=== PATIENT | female | born 1980 | race Caucasian/White ===

== ENCOUNTER → 2016-07-31 | Outpatient (CLI) | payer BC ==
[~2016-07-31] VITALS: Ht 154.9 cm; Wt 104.0 kg
[~2016-07-31] MED LIST: ACET-1651 PO; CALC500T7; D5LR 1,000 ML IV ONE; DimenhyDRINATE 50 MG in LR 1,000 ML IV ONE; FERR1TAB25 PO; LEVO25TA49 PO; LOPERAMIDE 2 MG CAPSULE PO ONE; ONDANSETRON 4mg/2ml INJECTION IV PRN; PREN-92 PO; RANI-45 PO
[2016-07-31 10:57] VITALS: BP 146/82; PULSE 91; RESP 18; TEMP 98.5; O2SAT 100
[2016-07-31 10:58] LABS: BASOPHILS % (AUTO) 0.2 % (0-2); EOSINOPHILS # (AUTO) 0.1 T/MM3 (0-0.5); EOSINOPHILS % (AUTO) 0.8 % (0-4); IMMATURE GRANULOCYTE # (AUTO) 0.09 T/MM3 (0.00-0.03); IMMATURE GRANULOCYTE % (AUTO) 0.8 % (0.0-0.5); LYMPHOCYTES # (AUTO) 1.9 T/MM3 (1-4.8); LYMPHOCYTES % (AUTO) 16.5 % (23-45); MEAN CORPUSCULAR HGB 29.6 UUG (26-34); MEAN CORPUSCULAR HGB CONC(MCHC 32.4 GM/DL (31-37); MEAN CORPUSCULAR VOLUME 91.4 UM3 (80-100); MEAN PLATELET VOLUME 9.6 UM3 (9.4-12.4); MONOCYTES # (AUTO) 0.3 T/MM3 (0-0.8); NEUTROPHILS % (AUTO) 78.7 % (33-66); RED BLOOD COUNT 3.72 M/MM3 (4.00-5.20); WBC - WHITE BLOOD COUNT 11.5 T/MM3 (4.5-11.0)
[2016-07-31 11:22] VITALS: Ht 154.9 cm; Wt 104.0 kg
[2016-07-31 11:35] LABS: BLOOD, URINE NEGATIVE (NEGATIVE); COLOR,URINE YELLOW (YELLOW); LEUKOCYTE ESTERASE ,URINE NEGATIVE (NEGATIVE); NITRITE,URINE NEGATIVE (NEGATIVE)
--- NOTE | 2016-07-31 13:51 | NUR ---
STOOL STOOL SPECIMEN COLLECTED AND TAKEN TO LAB. IMMODIUM 2MG PO GIVEN ORDERED.
== END ==
LOC: INF.THER 10:12
PROVIDERS: ATTEND Obstetrics & Gynecology
DX: O21.1 Hyperemesis gravidarum with metabolic disturbance (principal)
CPT/HCPCS: 81003; 84443; 85025; 87507; J1240; J7120; J7121

== ENCOUNTER 2016-09-18 05:33 | Inpatient (IN) | payer BC ==
[2016-09-18] VITALS (14 sets, daily range): BP systolic 102–138; BP diastolic 63–88; PULSE 93–107; RESP 16–18; TEMP 97–98.4; O2SAT 97–100
[~2016-09-18] VITALS: Ht 154.9 cm; Wt 106.1 kg
[~2016-09-18 05:33] MED LIST changes: -D5LR 1,000 ML IV ONE; -DimenhyDRINATE 50 MG in LR 1,000 ML IV ONE; -FERR1TAB25 PO; -LEVO25TA49 PO; -LOPERAMIDE 2 MG CAPSULE PO ONE; -ONDANSETRON 4mg/2ml INJECTION IV PRN; +P-EP-93 PO; -RANI-45 PO
[2016-09-18] MEDS ORDERED: FAMOTIDINE 20mg IVPB 50 ML IV ONE (05:45)
[2016-09-18] MEDS ORDERED: CITRIC ACID/SODIUM CITRATE 30 ML PO ONE (05:45)
[2016-09-18] MEDS ORDERED: CEFAZOLIN 2 GM in D5W 50ml 50 ML IV ONE (05:45)
[2016-09-18] MEDS ORDERED: LIDOCAINE 1% (10mg/ml) 2ml SDV ID PRN (05:45)
[2016-09-18] MEDS ORDERED: NOZIN NASAL SWAB NS PRN (05:45)
[2016-09-18] MEDS: LR 1,000 ML IV PRN ×2 (06:09→07:05)
[2016-09-18 06:27] LABS: BASOPHILS % (AUTO) 0.2 % (0-2); EOSINOPHILS # (AUTO) 0.2 T/MM3 (0-0.5); EOSINOPHILS % (AUTO) 1.1 % (0-4); HCT - HEMATOCRIT 35.4 % (36-46); HGB - HEMOGLOBIN 11.7 GM/DL (12-16); IMMATURE GRANULOCYTE # (AUTO) 0.09 T/MM3 (0.00-0.03); IMMATURE GRANULOCYTE % (AUTO) 0.6 % (0.0-0.5); LYMPHOCYTES % (AUTO) 21.3 % (23-45); MEAN CORPUSCULAR HGB 30.2 UUG (26-34); MEAN CORPUSCULAR HGB CONC(MCHC 33.1 GM/DL (31-37); MEAN CORPUSCULAR VOLUME 91.5 UM3 (80-100); MEAN PLATELET VOLUME 10.3 UM3 (9.4-12.4); MONOCYTES # (AUTO) 0.7 T/MM3 (0-0.8); NEUTROPHILS #(AUTO)-ABSOLUTE 10.1 T/MM3 (1.8-7.7); NEUTROPHILS % (AUTO) 71.8 % (33-66); RED BLOOD COUNT 3.87 M/MM3 (4.00-5.20); WBC - WHITE BLOOD COUNT 14.1 T/MM3 (4.5-11.0)
--- NOTE | 2016-09-18 06:45 | ANESOB ---
Epidural/ Date/Time DATE: 09/18/16 TIME: 06:43 Preop Diagnosis Procedure: Plan: Spinal Height: 5 ' 1.00 " Weight: kg BMI: kg/m2 P:1 Medications & Allergies Inpatient Medications Current Medications Medications (Trade) Dose Ordered Sig/Jayden Start Time Stop Time Status Last Admin Dose Admin Lactated Ringer's (Lactated Ringers) 1,000 ml @ 150 mls/hr Q6H40M PRN 09/18/16 05:36 09/18/16 06:09 150 MLS/HR Lidocaine HCl (Xylocaine 1%) 0.2 mg PRN PRN 09/18/16 05:45 Multi-Ingredient Antiseptic (Nozin Nasal Swab) 3 each PREOP PRN 09/18/16 05:45 Acetaminophen (Tylenol Extra Strength) 500 Mg Tablet, 500 MG PO PRN, (Reported) Last Taken: on 09/17/16 2200 Calcium Carbonate (Tums) 200 Mg Tab.chew, PRN, ( Reported) Last Taken: on 09/17/16 2300 Loratadine/Pseudoephedrine (Claritin-D 12 Hour Tablet) 1 Each Tab.er.12h, 1 TAB PO DAILY, (Reported) Last Taken: on 09/17/16 1000 Vits W-Ca,Fe,Fa(<1MG) ( Vitamins) 1 Tab Tablet, 1 TAB PO DAILY, (Reported) Last Taken: on 09/17/16 1000 Coded Allergies: aspirin (Verified Allergy, Unknown, 09/18/16) Medical/Surgical History Anesthesia PMH: Reports: *Hypertension (with ), Anesthesia Reactions ( no airway issues, n&v), Asthma, Headaches (migraines), Pneumonia (several years ago), Reflux, Thyroid Disease (hypothyroid), Denies: *Diabetes, *[place], Arthritis, CHF, CVA/Stroke/TIA, Cancer, Clotting Problems, Glaucoma, Hepatitis, Hiatal Hernia, Malignant Hyperthermia, Renal Disease, Seizures, Sleep Apnea Smoking Status: Never smoker Does patient use chewing tobac: No Second Hand Exposure: No Substance Use Type: does not use Alcohol Intake: none Anesthesia Adverse Reactions: FOUND nausea and vomiting Family Hx of Anesthesia Advers: none Hx of Motion Sickness: No Complications During : No Pertinent Findings Laboratory Tests 09/18/16 06:07 EKG Rhythm: Sinus Rhythm Physical Exam Respiratory: Lungs clear Cardiovascular: Regular rate, rhythm Airway Assessment Mallampati Score: II TMD: 3 Fingerbreadths Neck Extension: Good Overall Assessment: May Be Diff Intubation ASA: 2 Discussion Discussed risks/options/alternatives of anesthesia. Patient consents. Nursing pain assessment noted. Present for Discussion: Present: Spouse Attestation Statement Prior to the delivery of any anesthetic medication, I examined the patient, developed the plan, obtained the patient's consent and discussed the risk and benefits of the procedure with the patient/guardian. If the note happens to be signed after anesthesia start time, it is only due to providing efficient care of the patient and documenting at a time when the computer is available. LYNDSAY GRISSOM SHOT BLAST EQUIPMENT OPERATOR September 18, 2016 06:45
[2016-09-18] MEDS ORDERED: OXYTOCIN 30 UNIT in D5LR 500 ML IV SCH (08:13)
[2016-09-18] MEDS ORDERED: HYDROCORTISONE 2.5% CREAM 30 GM RECTALLY PRN (08:15)
[2016-09-18] MEDS ORDERED: CALCIUM CARBONATE 500mg Chewable TAB PO PRN (08:15)
[2016-09-18] MEDS ORDERED: ACETAMINOPHEN 500 MG TABLET PO PRN (08:15)
[2016-09-18] MEDS ORDERED: DiphenhydrAMINE 25 MG CAPSULE PO PRN (08:15)
[2016-09-18] MEDS ORDERED: MILK OF MAGNESIA 30 ML SUSP PO PRN (08:15)
[2016-09-18] MEDS: D5LR 1,000 ML IV SCH ×2 (08:42→14:26)
[2016-09-18] MEDS ORDERED: METOCLOPRAMIDE 10mg/2ml INJECTION IV PRN (08:45)
[2016-09-18] MEDS ORDERED: NALBUPHINE 10mg/ml INJECTION IV PRN (08:45)
[2016-09-18] MEDS ORDERED: DiphenhydrAMINE 50 MG/ML INJECTION IV PRN (08:45)
[2016-09-18] MEDS ORDERED: NALOXONE 0.4mg/ml INJECTION IV PRN (08:45)
[2016-09-18] MEDS ORDERED: ONDANSETRON 4mg/2ml INJECTION IV PRN (08:45)
[2016-09-18] MEDS: SIMETHICONE 80 MG CHEWABLE TABLET PO CHEW SCH ×4 (09:30→22:34)
[2016-09-18] MEDS: IBUPROFEN 800 MG TABLET PO SCH ×2 (10:14→18:46)
[2016-09-18] MEDS: HYDROCODONE/APAP 5 mg/325 mg TABLET PO PRN ×3 (11:03→20:28)
--- NOTE | 2016-09-18 11:25 | OPNOTEF ---
DATE OF OPERATION 09/18/2016 PREOPERATIVE DIAGNOSIS 1. Term , previous x1. 2. Undesired fertility. 3. Chronic hypertension with superimposed preeclampsia (mild, with proteinuria). PROCEDURES Repeat low transverse with tubal ligation. SURGEON Milli Holley MD 3D DESIGNER Daniel Casey, Booth Cashier ANESTHESIA Spinal epidural GLASS CYLINDER FLANGER Leodan Carcamo CRNA EBL 700 mL DESCRIPTION OF PROCEDURE Ms. Wilhelm was brought to the OR and given regional analgesia to good effect. She was then placed on the OR table in the supine position with left lateral displacement. A Gusman catheter was placed to dependent drain. The abdomen was prepped and draped in the usual sterile fashion. A Pfannenstiel skin incision was made through the patient's prior scar. This was carried down to fascia. Fascia was incised transversely. Fascia was then bluntly and sharply dissected free of rectus muscles. Rectus muscles were bluntly divided. The peritoneum was tented up and sharply entered. This was extended vertically. The bladder blade was inserted. The bladder was noted to be well below the area of operation. A low transverse uterine incision was made with a sharp knife. There was copious clear amniotic fluid. Baby was somewhat difficult to deliver as the head kept flexing. The vertex blade was used to elevate the head. Baby was then delivered without any further difficulty. Baby was bulb suctioned on the abdomen. Cord was doubly clamped and cut and the baby was given to Dr. Blake and his team for care. This is a liveborn male with Apgars of 6/9/9, weighing 7 pounds, 14.8 ounces. The placenta was then expressed intact. It had a normal configuration and normal-appearing three-vessel cord. The uterus was exteriorized. We swept the myometrium clear of membranes. The myometrial incision was then reapproximated with a running locking 0 Monocryl. We inspected carefully for hemostasis. This was under good control. We turned our attention to the tubal ligation. The right fallopian tube was visualized to its fimbria. It was grasped just past the midpoint with a [place] clamp. A section of tube was isolated with a simple ligature of 0 chromic. The mesosalpinx was then pierced with a hemostat and two simple ligatures of 2-0 silk were brought through, ligating either side of the isolated section of tube. The tube dissection was then excised and sent to pathology. The stumps were carefully watched and found to be hemostatic. We then repeated the procedure on the left fallopian tube in the exact same fashion, again making sure that hemostasis remained under good control. We reinspected the myometrial incision and then returned the uterus to the abdominal cavity. Gross blood clots were removed and we began our peritoneal closure using a running nonlocking 2-0 Vicryl for this. Fascia was then reapproximated with running nonlocking 0 Vicryl. Skin edges were reapproximated with a subcuticular style 3-0 undyed Vicryl. The wound was dressed with Steri-Strips and a sterile dressing. Counts were correct postoperatively x2. The urine remained clear and free flowing throughout the procedure. Ms. Wilhelm was then transferred to recovery in stable condition. FRANCISCO
[2016-09-18 12:19] LABS: HCT - HEMATOCRIT 27.1 % (36-46); HGB - HEMOGLOBIN 8.8 GM/DL (12-16); MEAN CORPUSCULAR HGB 29.7 UUG (26-34); MEAN CORPUSCULAR HGB CONC(MCHC 32.5 GM/DL (31-37); MEAN CORPUSCULAR VOLUME 91.6 UM3 (80-100); MEAN PLATELET VOLUME 10.1 UM3 (9.4-12.4); RED BLOOD COUNT 2.96 M/MM3 (4.00-5.20); WBC - WHITE BLOOD COUNT 16.4 T/MM3 (4.5-11.0)
[2016-09-18 12:33] LABS: BAND NEUTROPHILS # 0.2 T/MM3; EOSINOPHILS # (MANUAL) 0.2 T/MM3 (0-0.5); NEUTROPHILS #(MANUAL)-ABSOLUTE 14.1 T/MM3 (1.8-7.7); TOTAL CELLS COUNTED 100 %
[2016-09-18 15:50] LABS: HCT - HEMATOCRIT 26.8 % (36-46); HGB - HEMOGLOBIN 8.7 GM/DL (12-16); MEAN CORPUSCULAR HGB 29.8 UUG (26-34); MEAN CORPUSCULAR HGB CONC(MCHC 32.5 GM/DL (31-37); MEAN CORPUSCULAR VOLUME 91.8 UM3 (80-100); MEAN PLATELET VOLUME 9.3 UM3 (9.4-12.4); RED BLOOD COUNT 2.92 M/MM3 (4.00-5.20); WBC - WHITE BLOOD COUNT 16.7 T/MM3 (4.5-11.0)
[2016-09-18] MEDS: DOCUSATE CALCIUM 240 MG CAPSULE PO SCH (16:10)
[2016-09-18] MEDS ORDERED: LR 1,000 ML IV ONE (19:00)
[2016-09-18] MEDS ORDERED: DiphenhydrAMINE 50 MG/ML INJECTION IV ONE (22:00)
[2016-09-18] MEDS ORDERED: FENTANYL 100mcg/2ml INJECTION IV ONE (22:00)
[2016-09-18] MEDS ORDERED: ONDANSETRON 4mg/2ml INJECTION IV ONE (22:00)
[2016-09-18] MEDS ORDERED: MORPHINE SULFATE PF 5mg/10ml VL (DURAMORPH) EPI ONE (22:00)
--- NOTE | 2016-09-18 23:06 | NUR ---
Dr Notification Dr Holley notified that pts abdominal dressing pad is 95% saturated with blood which is visible thru the rubber tape that is over abdominal dressing. Dr instructed this RN to look at incision under dressing but make sure to not touch incision. Steri strips are in place over the incision and completely saturated with blood as is the Telfa pad. Dr asked if area bleeding along incision. Explained to Dr that visible bleeding noted coming from left side of pts incision, a slow trickle of blood noted coming this area. Dr instructed RN to discard old dressing and place new ABD pad over pts incision and place rubber tape over the area with pressure. VS reported to Dr when questioned. RN reported pt output also. Reported pt activity which included pt ambulating without difficulty in hallways with stand by supervision. Will continue to monitor pt and report concerns as needed
[2016-09-19] VITALS (41 sets, daily range): BP systolic 128–199; BP diastolic 67–102; PULSE 94–118; RESP 16–24; TEMP 97.8–98.8; O2SAT 92–100
[2016-09-19] MEDS: HYDROCODONE/APAP 5 mg/325 mg TABLET PO PRN (00:40)
--- NOTE | 2016-09-19 01:17 | NUR ---
Dr Notification Dr Milli Holley notified of status on pt dressing being 1/3 saturated in 2 hour timeframe. output 250 in 4 hours, abdomen appears to be more distended and firm but not hard with palpation, Pt reports Abdomen tender up to breast area. Pt and her mother report feeling that pt abdomen appears larger than when pt was . Order received for H&H. Will call Dr with results.
[2016-09-19 01:35] LABS: HCT - HEMATOCRIT 22.3 % (36-46); HGB - HEMOGLOBIN 7.2 GM/DL (12-16)
--- NOTE | 2016-09-19 01:44 | NUR ---
Dr notification Dr Holley notified of pt H&H result 7.2 down from admission of 11.7. Dr reported that she will come evaluate pt.
[2016-09-19] MEDS ORDERED: IOHEXOL 300 MG/ML 100ml INJECTION ONE (02:30)
[2016-09-19] MEDS ORDERED: SALINE FLUSH 10ml SYRINGE ONE (02:30)
[2016-09-19] MEDS ORDERED: NORMAL SALINE 0 ML ONE (02:30)
[2016-09-19 02:35] LABS: CREATININE 0.6 MG/DL (0.7-1.2)
--- NOTE | 2016-09-19 02:38 | NUR ---
Shift summary Pt VSS, molina cath remains in place with adequate output, eating and drinking well, minimal amount of vaginal bleeding, taking Ibuprofen and [place] for incisional and abdominal discomfort, Abdominal binder on as order, pt abdomen distended, evaluated by Dr Arabella Holley at 0210, new order for lab and CT of abdomen. Pt abdominal dressing was reinforced due to bleeding on the left side of pt incision as instructed by Dr Holley, Pt ambulated on unit with supervision without difficulty. Will continue to monitor pt per POC.
[2016-09-19] MEDS: IBUPROFEN 800 MG TABLET PO SCH ×2 (03:32→18:49)
[2016-09-19 04:32] LABS: BASOPHILS % (AUTO) 0.1 % (0-2); EOSINOPHILS # (AUTO) 0.1 T/MM3 (0-0.5); EOSINOPHILS % (AUTO) 0.4 % (0-4); HCT - HEMATOCRIT 20.4 % (36-46); HGB - HEMOGLOBIN 6.7 GM/DL (12-16); IMMATURE GRANULOCYTE # (AUTO) 0.08 T/MM3 (0.00-0.03); IMMATURE GRANULOCYTE % (AUTO) 0.6 % (0.0-0.5); LYMPHOCYTES # (AUTO) 1.8 T/MM3 (1-4.8); LYMPHOCYTES % (AUTO) 12.1 % (23-45); MEAN CORPUSCULAR HGB CONC(MCHC 32.8 GM/DL (31-37); MEAN CORPUSCULAR VOLUME 91.5 UM3 (80-100); MEAN PLATELET VOLUME 9.9 UM3 (9.4-12.4); MONOCYTES # (AUTO) 0.6 T/MM3 (0-0.8); MONOCYTES % (AUTO) 4.3 % (0-9.0); NEUTROPHILS % (AUTO) 82.5 % (33-66); RED BLOOD COUNT 2.23 M/MM3 (4.00-5.20); WBC - WHITE BLOOD COUNT 14.5 T/MM3 (4.5-11.0)
--- NOTE | 2016-09-19 04:36 | ANESPO ---
Post-Op Note Date 09/19/16 Time: 04:36 Status Pt Participated in Evaluation: Pt participated in person Vital Signs Date Time Temp Pulse Resp B/P Pulse Ox O2 Delivery O2 Flow Rate FiO2 09/19/16 03:23 110 24 144/75 98 Room Air 09/19/16 00:20 98.3 Respiratory Function: Airway patent, Regular respirations Cardiovascular Function: Regular pulse Mental Status: Alert/oriented Pain Level Intensity: 7 Hydration: IV infusing Complications during Recovery None apparent Post-Anesthesia Notes Post op bleeding. Follow-Up Instructions Instructions Per Surgeon ESTEPHANIE COBOS CRNA September 19, 2016 04:36
--- NOTE | 2016-09-19 04:39 | ANESPREOP ---
Anesthesia Record Date and Time DATE: 09/19/16 TIME: 04:37 Pre-Op Diagnosis post op bleeding Proposed Surgical Procedure exploratory laparotomy NPO since: 2300 Allergies: Coded Allergies: aspirin (Verified Allergy, Unknown, 09/18/16) Ht/Wt/BMI Height: 5 ' 1.00 " Weight: 106.100 kg BMI: kg/m2 Vital Signs Date Time Temp Pulse Resp B/P Pulse Ox O2 Delivery O2 Flow Rate FiO2 09/19/16 03:23 110 24 144/75 98 Room Air 09/19/16 00:20 98.3 Medications Inpatient Medications Current Medications Medications (Trade) Dose Ordered Sig/Jayden Start Time Stop Time Status Last Admin Dose Admin Lactated Ringer's (Lactated Ringers) 1,000 ml @ 150 mls/hr Q6H40M PRN 09/18/16 05:36 09/18/16 08:17 DC 09/18/16 07:05 150 MLS/HR Lidocaine HCl (Xylocaine 1%) 0.2 mg PRN PRN 09/18/16 05:45 09/18/16 08:17 DC Multi-Ingredient Antiseptic 3 each 3 each PREOP PRN 09/18/16 05:45 09/18/16 08:17 DC 09/18/16 06:51 1 EACH Oxytocin 30 unit/ Dextrose/Lactated Ringer's 503 ml @ 50 mls/hr Q10H4M 09/18/16 08:13 09/18/16 18:16 DC Dextrose/Lactated Ringer's (D5lr) 1,000 ml @ 100 mls/hr Q10H 09/18/16 08:13 09/18/16 14:26 100 MLS/HR Ibuprofen (Motrin) 800 mg Q8HMC 09/18/16 16:00 09/19/16 03:32 800 MG Acetaminophen/ Hydrocodone Bitart ([place] 5/325) Do not exceed 10 tabs in... Q4H PRN 09/18/16 08:15 09/19/16 00:40 2 TAB Docusate Calcium (SURFAK 240 mg) 240 mg DAILY 09/18/16 09:00 09/18/16 16:10 240 MG Simethicone (MYLICON 80 mg) 80 mg PCHS 09/18/16 09:30 09/18/16 22:34 80 MG Acetaminophen (Tylenol Extra Strength) 1-2 TABS = 500-1,000 MG Q4H PRN 09/18/16 08:15 Diphenhydramine HCl (Benadryl) 1-2 TABS = 25-50 MG Q6H PRN 09/18/16 08:15 Magnesium Hydroxide (Mom) 30 ml HS PRN 09/18/16 08:15 Hydrocortisone (Anusol-Hc) 1 applic PRN PRN 09/18/16 08:15 Calcium Carbonate (TUMS Regular Strength) 1-2 TABS = 500-1,000 MG Q2H PRN 09/18/16 08:15 Metoclopramide HCl (REGLAN Inj) 10 mg Q6H PRN 09/18/16 08:45 09/19/16 08:44 Ondansetron HCl (Zofran) 4 mg Q4H PRN 09/18/16 08:45 09/19/16 08:44 Diphenhydramine HCl (Benadryl) 25-50 MG = 0.5-1 ML Q3H PRN 09/18/16 08:45 09/19/16 08:44 09/18/16 11:05 25 MG Nalbuphine HCl (Nubain) 5-10 MG = 0.5-1 ML Q4H PRN 09/18/16 08:45 09/19/16 08:44 Naloxone HCl (Narcan) 0.1 mg Q2M PRN 09/18/16 08:45 09/19/16 08:44 Acetaminophen (Tylenol Extra Strength) 500 Mg Tablet, 500 MG PO PRN, (Reported) Last Taken: on 09/17/16 2200 Calcium Carbonate (Tums) 200 Mg Tab.chew, PRN, ( Reported) Last Taken: on 09/17/16 2300 Loratadine/Pseudoephedrine (Claritin-D 12 Hour Tablet) 1 Each Tab.er.12h, 1 TAB PO DAILY, (Reported) Last Taken: on 09/17/16 1000 Vits W-Ca,Fe,Fa(<1MG) ( Vitamins) 1 Tab Tablet, 1 TAB PO DAILY, (Reported) Last Taken: on 09/17/16 1000 Currently on Beta Christina: No Medical/Surgical History Anesthesia PMH: Reports: *Hypertension (with ), Asthma, Headaches ( migraines), Pneumonia (several years ago), Reflux, Thyroid Disease (hypothyroid) , Denies: *Diabetes, *[place], Anesthesia Reactions, Arthritis, CHF, CVA/Stroke/TIA, Cancer, Clotting Problems, Glaucoma, Hepatitis, Hiatal Hernia, Malignant Hyperthermia, Renal Disease, Seizures, Sleep Apnea Smoking Status: Never smoker Use Chewing Tobacco?: No Second Hand Exposure: No Substance Use Type: does not use Past Surgical History Orthopedic Surgeries: No Abdominal Surgeries: Yes - gallbladder removed 2009 Genitourinary Surgeries: Yes - cystoscopy,urethra stretching Cardiac Surgeries: Endocrine Surgeries: Reproductive Surgeries: Yes - Neurological Surgeries: Ear Surgeries: Nose Surgeries: Throat Surgeries: Other Surgeries: Yes - csection Anesthesia Adverse Reactions: FOUND nausea and vomiting Family Hx of Anesthesia Advers: none Hx of Motion Sickness: No Pertinent Findings Laboratory Tests 09/19/16 02:21 09/19/16 04:27 Physical Exam Respiratory: Lungs clear Cardiovascular: FOUND Regular rate, rhythm, FOUND No murmur Airway Assessment Mallampati Score: II TMD: 3 Fingerbreadths Neck Extension: Good Overall Assessment: No Airway Concerns, May Be Diff Intubation ASA: 3 Plan Anesthesia Plan: GETA (RSI CCP) Discussion Discussed risks/options/alternatives of anesthesia and questions answered. Patient consents. Nursing pain assessment noted. Present: Spouse Attestation Statement Prior to the delivery of any anesthetic medication, I examined the patient, developed the plan, obtained the patient's consent and discussed the risk and benefits of the procedure with the patient/guardian. ESTEPHANIE COBOS CRNA September 19, 2016 04:39
[2016-09-19] MEDS ORDERED: METOCLOPRAMIDE 10mg/2ml INJECTION IV ONE (04:45)
[2016-09-19] MEDS ORDERED: FAMOTIDINE 20mg in NS 50ml IV ONE (04:45)
[2016-09-19] MEDS ORDERED: FAMOTIDINE 20mg IVPB 50 ML IV ONE (04:45)
[2016-09-19] MEDS ORDERED: CEFAZOLIN 2 GM in D5W 50ml 50 ML IV ONE (04:45)
[2016-09-19] MEDS ORDERED: CITRIC ACID/SODIUM CITRATE 30 ML PO ONE ×2 (04:45)
[2016-09-19] MEDS ORDERED: PROPOFOL 200mg 20 ML IV ONE (04:48)
[2016-09-19] MEDS ORDERED: KETAMINE 500mg/10ml INJECTION ONE (04:49)
[2016-09-19] MEDS ORDERED: ROCURONIUM 50mg/5ml INJECTION IV ONE (04:49)
[2016-09-19] MEDS ORDERED: FENTANYL 250mcg/5ml INJECTION ONE (04:49)
--- NOTE | 2016-09-19 05:10 | NUR ---
PATIENT TAKEN TO OR PT WAS ESCORTED OFF UNIT BY MOOK COYLE AND TAKEN TO OR.
[2016-09-19] MEDS ORDERED: MIDAZOLAM 2mg/2ml INJECTION ONE (05:16)
[2016-09-19] MEDS ORDERED: LIDOCAINE 2% (20mg/ml) 5ml PF SDV ONE (05:21)
[2016-09-19] MEDS ORDERED: DEXAMETHASONE 4mg/ml - 1ml INJECTION ONE (05:28)
[2016-09-19] MEDS ORDERED: SUGAMMADEX 200 MG/2 ML INJECTION IV ONE (06:31)
[2016-09-19] MEDS ORDERED: D5LR 1,000 ML IV SCH (06:40)
--- NOTE | 2016-09-19 06:40 | GYNOPNOTE1 ---
METALIZING MACHINE OPERATOR AUTOMATIC Postoperative Note Date of Operation: 09/19/16 Preoperative Dx Comments PreOp Dx: post-op bleeding (s/p with PPTL) Postoperative Diagnosis: Same as Preoperative Procedure: exploratory laparotomy, ligation of myometrial incision Surgeon: Milli Luna MD Chip Mixing Machine Operator Surgeon: Daniel Casey, Surg. Assist Anesthesia Provider: Feliz Voss CRNA Anesthesia Type: general Comments EBL: 3000cc MILLI LUNA MD September 19, 2016 06:40
[2016-09-19] MEDS ORDERED: HYDROCORTISONE 2.5% CREAM 30 GM RECTALLY PRN (06:45)
[2016-09-19] MEDS ORDERED: DiphenhydrAMINE 25 MG CAPSULE PO PRN (06:45)
[2016-09-19] MEDS ORDERED: HYDROMORPHONE PCA 30 MG/30 ML VIAL IV PRN (06:45)
[2016-09-19] MEDS ORDERED: CALCIUM CARBONATE 500mg Chewable TAB PO PRN (06:45)
[2016-09-19] MEDS ORDERED: MILK OF MAGNESIA 30 ML SUSP PO PRN (06:45)
[2016-09-19] MEDS ORDERED: ACETAMINOPHEN 500 MG TABLET PO PRN (06:45)
[2016-09-19] MEDS ORDERED: KETOROLAC 30mg/ml INJECTION IV ONE (07:00)
[2016-09-19] MEDS ORDERED: ONDANSETRON 4mg/2ml INJECTION IV PRN (07:00)
[2016-09-19] MEDS ORDERED: HYDROMORPHONE 2mg/ml INJECTION IV PRN (07:00)
--- NOTE | 2016-09-19 07:02 | PNF ---
DATE 09/19/2016 Ms. Wilhelm has had decreased urine output through the late afternoon and evening. This resolved with IV fluid bolus. However, she has also had abdominal distention. The morning of 09/18/2016, about three hours after her , she developed faintness and some bleeding from her incision. The incision was inspected by me at the time and was reinforced and I did not see any bleeding after that. Her abdomen at that time was soft. The lightheadedness resolved spontaneously. Vital signs showed no tachycardia at the time. Blood pressure did drop to 90s/ 50s briefly but resolved spontaneously. Later the patient was able to walk and eat without incident. This evening she has developed abdominal distention. Her hemoglobin through the course of the day went from 11.7 preop to 8.8 postop and then at 1:30 this morning was 7.2. On exam her abdomen is distended. I am not able to appreciate any bowel sounds. She reports diffuse abdominal tenderness, particularly in the upper quadrants. Her most recent blood pressure is 130/67. Pulse was 94. The patient now has improved urine output. The recheck of her hemoglobin was precipitated by increased bleeding from her incision. This has been reinforced by the nurse and we're not seeing bleeding at this point. I have, however, ordered a CT scan of the abdomen. I suspect she may have postoperative bleeding. went without incident, but I believe that something occurred this morning that may have started some new bleeding. We want to make sure that it is not ongoing. I have discussed this with Ms. Wilhelm who voices understanding and a CAT scan is being arranged at this time. FRANCISCO
[2016-09-19] MEDS ORDERED: LABETALOL 20mg/4ml INJECTION IV ONE (07:20)
[2016-09-19] MEDS: LABETALOL 100mg/20ml INJECTION IV PRN ×3 (07:30→07:50)
[2016-09-19] MEDS ORDERED: LABETALOL 100mg/20ml INJECTION IV ONE (07:30)
--- NOTE | 2016-09-19 07:34 | ANESPO ---
Post-Op Note Date 09/19/16 Time: 07:32 Status Pt Participated in Evaluation: Pt participated in person Vital Signs Date Time Temp Pulse Resp B/P Pulse Ox O2 Delivery O2 Flow Rate FiO2 09/19/16 07:02 20 09/19/16 03:23 110 144/75 98 Room Air 09/19/16 00:20 98.3 Respiratory Function: Airway patent, Regular respirations Cardiovascular Function: Regular pulse Mental Status: Alert/oriented Pain Level Intensity: 0 Hydration: IV infusing Complications during Recovery None apparent Follow-Up Instructions Instructions Per Surgeon ROSARIO ROGERS CRNA September 19, 2016 07:34
--- NOTE | 2016-09-19 08:02 | DI ---
EXAM: CT abdomen pelvis without contrast HISTORY: ITS.REASON: post op bleeding abdominal tenderness and bloating status post and tubal ligation with bleeding from incision site. Hemoglobin has dropped. COMPARISON: No prior studies are available for comparison TECHNIQUE: Multiple contiguous axial images were obtained of the abdomen and pelvis without contrast. Coronal and sagittal reformations were utilized. Automated Exposure Control and Iterative Reconstruction dose reducing techniques were utilized. PROCEDURE: Axial images were obtained throughout the entire abdomen and pelvis without contrast administration. FINDINGS: CT ABDOMEN LUNG BASES: There is bilateral dependent atelectasis demonstrated. LIVER: Unremarkable. SPLEEN: Unremarkable. GALLBLADDER: The gallbladder surgically absent. PANCREAS: Unremarkable. ADRENAL GLANDS: Unremarkable. KIDNEYS: Unremarkable. AORTA: Unremarkable. LYMPH NODES: Unremarkable. STOMACH BOWEL LOOPS: Unremarkable. The appendix is not visualized. PERITONEAL CAVITY: There is moderate to large amount of mixed hypo and hyperdense fluid throughout the abdomen and pelvis. The majority of the hyperdense fluid likely represents hemorrhage and is predominately located in the upper pelvis extending to the paracolic gutters. Small amount of free air is demonstrated within the peritoneal cavity and subcutaneous fat ventrally. CT PELVIS URINARY BLADDER: Gusman catheter is in place within decompressed bladder. UTERUS/OVARIES: The uterus is heterogeneous and enlarged compatible with recent section. OSSEOUS STRUCTURES: Bilateral spondylolysis at the L4 level with grade 1 anterolisthesis of L4 on L5. IMPRESSION: 1. Large mixed free fluid within the abdominal pelvic peritoneal cavity most compatible hemoperitoneum with the greatest amount of fluid concentrated in the upper pelvis and right paracolic gutter. 2. The uterus is enlarged and heterogeneous compatible with recent section. 3. Small pockets of gas within the peritoneal cavity and ventral abdominal subcutaneous wall fat. .
--- NOTE | 2016-09-19 08:43 | NUR ---
BACK FROM OR PT WAS ESCORTED BACK TO [facility] UNIT ON R BY MIRIAN DELVALLE. THIGH HIGH SCD'S AND 1L OXYGEN VIA NC.
[2016-09-19 08:50] LABS: HCT - HEMATOCRIT 25.4 % (36-46); HGB - HEMOGLOBIN 8.4 GM/DL (12-16); MEAN CORPUSCULAR HGB 30.1 UUG (26-34); MEAN CORPUSCULAR HGB CONC(MCHC 33.1 GM/DL (31-37); MEAN PLATELET VOLUME 9.8 UM3 (9.4-12.4); RED BLOOD COUNT 2.79 M/MM3 (4.00-5.20); WBC - WHITE BLOOD COUNT 16.3 T/MM3 (4.5-11.0)
--- NOTE | 2016-09-19 08:55 | PNF ---
DATE 09/19/[address] shows large amounts of fluid in her at the abdomen per the on-call radiologist's verbal report. Because of the apparent bleeding intraabdominally postoperatively, I have recommended we take her back to the operating room for exploratory laparotomy. We have discussed this, the possible sites for bleeding and the potential for need for a blood transfusion. We have reviewed the risks both of the surgery and blood transfusion. She has asked appropriate questions and agrees that this is next best course. The operating crew has been called and we will move forward with that. FRANCISCO
[2016-09-19] MEDS: LR 1,000 ML IV PRN (09:00)
[2016-09-19] MEDS: DOCUSATE CALCIUM 240 MG CAPSULE PO SCH (10:00)
[2016-09-19] MEDS: SIMETHICONE 80 MG CHEWABLE TABLET PO CHEW SCH ×3 (10:00→21:54)
--- NOTE | 2016-09-19 12:17 | OPNOTEF ---
DATE 09/19/2016 PREOPERATIVE DIAGNOSIS Postoperative bleeding (status post section with tubal ligation). POSTOPERATIVE DIAGNOSIS Postoperative bleeding (status post section with tubal ligation). PROCEDURES Exploratory laparotomy with ligation of myometrial bleeding. SURGEON Milli Holley MD WOOD INSPECTOR Daniel Casey, Research Food Technologist ANESTHESIA General endotracheal CUSTOMER DEVELOPMENT REPRESENTATIVE Feliz Cummins CRNA EBL 3000 mL DESCRIPTION OF PROCEDURE Ms. Wilhelm was brought to the OR and placed on the OR table in the comfortable supine position. She was given general anesthesia and intubated without difficulty. The abdomen was prepped and draped in the usual sterile fashion. A Gusman catheter had previously been placed to dependent drain. We opened the patient's prior incision by snipping the sutures all through the skin layer, fascial layer and peritoneal layer. We were was immediately greeted by copious amounts of dark red clot. We removed these manually by and large, then attempted to use the Alvares-O'Jamal retractor. This was not very helpful given the size of the uterus, so we decided to forego that. We simply used Leslie retractors and packed the bowel away. We then started to inspect the uterus. The right fallopian tube was hemostatic but had quite a bit of clot around it. The previous tubal ligation site was therefore clamped with a right angle and a free tie of 2-0 chromic placed around to further secure the previous tubal ligation. The left fallopian tube ligation site was hemostatic with no clot around it. The myometrial incision had a small area of bleeding on the left inferior serosal edge. This was not copious but was small and steady. It did not immediately respond to electrocautery. We then took an 0 Monocryl and secured the area by oversewing in a running locking fashion. We observed very carefully for hemostasis. This seemed to have it under good control. While the bleeding was not heavy at any point, it would explain how hours of that could lead to the amount of blood in the abdomen. We again reinspected all of our sites and the entire extent again of the myometrial incision and felt that the bleeding was under control. We then further removed blood from the abdominal cavity and irrigated copiously with sterile normal saline several times. Again we reinspected all sites. They remained hemostatic. We removed our pack and retractors and began our closure. Peritoneum was reapproximated with a running nonlocking 2-0 Vicryl. Fascia was reapproximated with a running nonlocking 0 Vicryl. Skin edges were then reapproximated with a subcuticular style 3-0 undyed Vicryl. The wound was dressed with a wound VAC dressing. Counts were correct postoperatively x2. The urine remained clear and free flowing throughout the procedure. During the course of the procedure, the patient received one unit of packed red blood cells transfusion. We will be following throughout the morning to see if she needs further transfusion. Ms. Wilhelm was then brought out from under anesthesia, extubated and transferred to recovery in stable condition. FRANCISCO
--- NOTE | 2016-09-19 14:58 | NUR ---
SHIFT SUMMARY VSS. PT RECEIVED 1 UNIT OF PACKED BLOOD IN THE OR, WOUND VAC IN PLACE. PAIN RELIEVED WITH DILAUDID PRODUCTION CONTROL TECHNOLOGIST. THIGH HIGH SCD'S ON, ABDOMINAL BINDER. IV IN LEFT WRIST LR AT 150MLS/HR. PERFORMED ALL CARES FOR BABY. BREAST FEEDING WELL X2.
--- NOTE | 2016-09-19 17:15 | NUR ---
ASSESSMENT: Pt consumed half of her general diet tray. at bedside. VSS, pt states she's having lots of gas pain but unable to have bowel movement. Pt rates gas pain 9/10. Bowel sounds audible, abdm distended but soft. Fundus firm at umbilicus, scant lochia noted. Abdm binder in place and wound vac applying suction at incision. RN discusses increasing ambulation and provides PO Mylicon to facilitate gas relief. IV infusing LR at 25ml/hr and supports Dilaudid SOCK LINING STITCHER. Urinary cath to dependent drain, adequate urine output. Generalized edema noted with +3 edema bilaterally in lower extremities and feet. Thigh-high SCD's pumping bilaterally. Pt has a dry cough, uses pillow to splint abdm. RN assist pt to BRP, no complication with ambulation. RN provides pericare and changes naveen pad. RN accompanies pt while ambulating in hallway on unit, no complications. Pt states she's tired and returns to bed. Water pitcher refilled and call light within pt's reach.
[2016-09-19 18:29] LABS: HCT - HEMATOCRIT 24.1 % (36-46); HGB - HEMOGLOBIN 7.9 GM/DL (12-16); MEAN CORPUSCULAR HGB 29.9 UUG (26-34); MEAN CORPUSCULAR HGB CONC(MCHC 32.8 GM/DL (31-37); MEAN CORPUSCULAR VOLUME 91.3 UM3 (80-100); MEAN PLATELET VOLUME 9.4 UM3 (9.4-12.4); RED BLOOD COUNT 2.64 M/MM3 (4.00-5.20); WBC - WHITE BLOOD COUNT 16.5 T/MM3 (4.5-11.0)
--- NOTE | 2016-09-19 19:47 | NUR ---
BLOATED ABDM: RN informs Dr Rosen on pt's distended abdm. RN explains how pt's abdm is bloated but soft, bowel sounds audible and pt stating she's having gas pain. Pt has generalized edema with +3 edema bilaterally in lower extremities. RN states pt's HR 117bpm and reviews repeat H&H with Dr Rosen. Dr Rosen orders to continue to monitor at this time.
--- NOTE | 2016-09-19 21:50 | NUR ---
VS AND BATH: VSS. Pt states she is still having gas pains in her abdm, rating pain 7/10. PT requesting to have a bath. RN assist pt to BRP, no complications. Urinary molina emptied, 225ml yellow urine collected. RN assist pt with sponge bath, scant lochia noted. While bathing, notable dark red drainage noted in wound vac tubing. Upon assessment of incision, wound vac packing saturated with dark red drainage with vacuum seal intact and drainage collected in cassette. Pt tolerates bath and remains standing in room while RN changes bed linens. RN assist pt back into bed. Meri workforce advisor in room to assess wound vac drainage and assist with application of abdm binder. Pt's fundus firm at umbilicus, abdm distended but softer than prior assessment at 1840. Dark drainage continues to collect in wound vac cassette. Pt denies other needs at this time, Pt's mother in room. Call light within pt's reach.
[2016-09-19] MEDS ORDERED: LR 1,000 ML IV SCH (22:00)
[2016-09-20] VITALS (9 sets, daily range): BP systolic 132–153; BP diastolic 77–96; PULSE 101–109; RESP 16–20; TEMP 97.9–98.5; O2SAT 95–99
--- NOTE | 2016-09-20 00:20 | NUR ---
AMBULATION: Pt having gas pain and states she can feel bubbles moving in her abdm. RN accompanies pt while pt ambulates in hallway, no complications. Pt returns to room and sits on toilet to facilitate flatulence. RN discusses and provides MOM. Pt states she passes a little gas and returns to bed. Call light within pt's reach.
--- NOTE | 2016-09-20 01:30 | NUR ---
PREVENA 125: Pt's wound vac full, 45ml dark drainage collected. Linn Mars RNinformation assurance officer changes Prevena 125 system (wound vac). Negative pressure applied and suction in place.
--- NOTE | 2016-09-20 02:08 | NUR ---
DR ROSEN NOTIFIED: RN calls and updates Dr Rosen on pt's 100ml urine out put for the past 4.[address] Rosen that pt's wound vac has been collecting dark red drainage since 2209 this evening when pt was up to BR and receiving a sponge bath. At 0130 pt's wound vac canister was full (45ml) of dark drainage and changed with new Prevena 125 system. Pt's HR currently 106bpm. Pt's IV infusing at 25ml/hr. Dr Rosen orders to monitor output for the next 4 hours.
--- NOTE | 2016-09-20 02:59 | NUR ---
Chart Check 24 hour chart check completed
[2016-09-20] MEDS: CEFAZOLIN 2 G in NORMAL SALINE 100 ML IV SCH ×3 (04:14→19:30)
[2016-09-20] MEDS: IBUPROFEN 800 MG TABLET PO SCH ×4 (04:14→19:29)
[2016-09-20] MEDS ORDERED: HYDROCODONE/APAP 5 mg/325 mg TABLET PO PRN (08:00)
[2016-09-20] MEDS ORDERED: HYDROMORPHONE PCA 30 MG/30 ML VIAL IV PRN (08:00)
--- NOTE | 2016-09-20 08:11 | PNPDOC ---
Progress Note PPD2 Rubella: Immune GBS: Positive Blood Type:A pos Subjective 09/20/16 Lochia: Minimal Pain: Controlled Voiding: Gusman still in Place Nausea and Vomiting: No Nausea/Vomiting Pt has walked in burroughs. Rare flatus. Tolerating regular diet. Objective Vital Signs Date Time Temp Pulse Resp B/P Pulse Ox O2 Delivery O2 Flow Rate FiO2 09/20/16 07:55 98.4 106 18 140/90 98 Room Air 09/19/16 09:03 1.00 Urine Output: Adequate General: Alert and Oriented Abdomen: Fundus Firm, Non-tender Incision: Clean/Dry/Intact Extremities: Non-tender Laboratory Item Value Date Time Hemoglobin 7.2 GM/DL L # 09/19/16 0128 Hemoglobin 8.7 GM/DL L 09/18/16 1544 Hemoglobin 8.8 GM/DL L # 09/18/16 1214 Hemoglobin 11.7 GM/DL L 09/18/16 0607 Hemoglobin 7.9 GM/DL L 09/19/16 1820 Hemoglobin 8.4 GM/DL L # 09/19/16 0840 White Blood Count 16.5 T/MM3 H 09/19/16 1820 White Blood Count 16.3 T/MM3 H 09/19/16 0840 White Blood Count 16.7 T/MM3 H 09/18/16 1544 Assessment SP, Repeat C/S Plan Iron Will begin po iron, Tyler, stop FLATBED COMPANY DRIVER. Recheck CBC. TIFFANY LUNA MD September 20, 2016 08:11
[2016-09-20] MEDS: HYDROCODONE/APAP 5 mg/325 mg TABLET PO PRN ×3 (08:13→19:30)
[2016-09-20] MEDS: SIMETHICONE 80 MG CHEWABLE TABLET PO CHEW SCH ×4 (08:13→22:00)
[2016-09-20] MEDS: DOCUSATE CALCIUM 240 MG CAPSULE PO SCH ×2 (08:13→09:00)
[2016-09-20 09:35] LABS: HGB - HEMOGLOBIN 7.4 GM/DL (12-16); MEAN CORPUSCULAR HGB CONC(MCHC 32.2 GM/DL (31-37); MEAN CORPUSCULAR VOLUME 93.1 UM3 (80-100); MEAN PLATELET VOLUME 9.9 UM3 (9.4-12.4); RED BLOOD COUNT 2.47 M/MM3 (4.00-5.20); WBC - WHITE BLOOD COUNT 17.4 T/MM3 (4.5-11.0)
--- NOTE | 2016-09-20 10:00 | NUR ---
Wound vac Helena Choi has visited with Dr. Holley regarding Prevena currently in place. Dr. Holley instructed that patient is to shower with Prevena in place it can be removed. Patient has showered but requests to leave wound vac in place for now.
[2016-09-20 10:16] LABS: BASOPHILS # (MANUAL) 0.2 T/MM3 (0-0.2); EOSINOPHILS # (MANUAL) 0.3 T/MM3 (0-0.5); LYMPHOCYTES # (MANUAL) 1.2 T/MM3 (1-4.8); METAMYELOCYTES # 0.3 T/MM3; MONOCYTES # (MANUAL) 0.7 T/MM3 (0-0.8); NEUTROPHILS #(MANUAL)-ABSOLUTE 14.6 T/MM3 (1.8-7.7); TOTAL CELLS COUNTED 100 %
[2016-09-20] MEDS: FERROUS GLUCONATE 324 MG TABLET PO SCH ×2 (12:13→19:34)
--- NOTE | 2016-09-20 15:09 | NUR ---
Shift summary Patient up and about caring for self and baby with the help of and family. INTERNATIONAL BANKER discontinued. Reports pain controlled with [place] and Ibuprofen. Has been up and showered. Gusman catheter has been discontinued and patient has been voiding without difficulty. Urine is concentrated and patient has been encouraged to push fluids. Passing gas and tolerating regular diet. Wearing abdominal binder. Continues to wear the Prevena wound vac. Will keep this in place until either the wound vac alarms because it is full or patient requests it be removed. Then nursing can remove it. IVL in place for q 8 hour Kefzol. Has been afebrile. Pulse now running in the 100s. Bonding will with baby.
--- NOTE | 2016-09-20 22:35 | NUR ---
BP Patients BP elevated at this time. Increased from previous pressures. Patient denies LARES, blurred vision, epigastric pain etc. Dr Vernon notified and updated, no new orders received at this time.
--- NOTE | 2016-09-20 22:40 | NUR ---
Wound Vac Wound Vac discontinued per Dr Holley order. Patient ready to have it removed. Assisted by David DELVALLE, dressing and pump removed at patient bedside. Telfa and ABD applied with tape.
[2016-09-21 01:30] VITALS: BP 163/79; PULSE 115; RESP 20; TEMP 98.5
[2016-09-21] MEDS: HYDROCODONE/APAP 5 mg/325 mg TABLET PO PRN (01:30)
[2016-09-21] MEDS: IBUPROFEN 800 MG TABLET PO SCH ×2 (03:53)
[2016-09-21] MEDS ORDERED: CEFAZOLIN 2 G in NORMAL SALINE 100 ML IV SCH (04:00)
[2016-09-21 04:40] VITALS: BP 150/85; PULSE 103; RESP 20; TEMP 98.2; O2SAT 98
[2016-09-21] MEDS ORDERED: IBUP-1547 PO (07:38)
[2016-09-21] MEDS ORDERED: DOCU240C40 PO (07:38)
[2016-09-21] MEDS ORDERED: FERR324T PO (07:38)
[2016-09-21] MEDS ORDERED: HYDR-4246 PO (07:38)
[2016-09-21] MEDS: SIMETHICONE 80 MG CHEWABLE TABLET PO CHEW SCH (08:00)
[2016-09-21] MEDS: FERROUS GLUCONATE 324 MG TABLET PO SCH (08:00)
[2016-09-21] MEDS: DOCUSATE CALCIUM 240 MG CAPSULE PO SCH (08:00)
[2016-09-21 09:55] VITALS: BP 128/82; PULSE 106; RESP 20; TEMP 98; O2SAT 97
--- NOTE | 2016-09-21 13:17 | DSF ---
DISCHARGE DIAGNOSES 1. Preeclampsia (mild with proteinuria). 2. Term . 3. Undesired fertility. 4. Postoperative bleeding. 5. Anemia. PROCEDURES 1. Combination spinal epidural. 2. Repeat low transverse with bilateral tubal ligation. 3. Exploratory laparotomy with ligation of uterine bleeding. 4. Transfusion of 1 unit packed red blood cells. HOSPITAL COURSE Ms. Wilhelm is a 35-year-old G2, P1 with an JOE of 10/07/2016. She has a history of chronic mild hypertension not medicated. She developed superimposed preeclampsia with proteinuria and therefore was brought in at 37 weeks for a repeat low transverse with tubal ligation. This went without incident initially. However, postoperatively she developed signs of bleeding. Hemoglobin dropped under 7. She tolerated this well. However, on 09/19/2016 was taken back to surgery for exploratory laparotomy and repair of areas of bleeding. Please see operative reports of all of this. She received 1 unit packed red blood cells. At the time of this dictation she is doing well. Her hemoglobin has remained about 7.5. Vital signs have been stable and urine output is good. She is able to walk in the halls without difficulty. She is tolerating p.o. pain control and iron well. She is dismissed to home. She was given prescriptions for ibuprofen, Arnett 5 mg, ferrous gluconate and Colace. She is scheduled for followup in about 10 days in the office. We reviewed postoperative instructions and precautions. She was encouraged to call with any concerns. [facility]
== END 2016-09-21 10:43 | disposition home or self-care (01) | DRG 765 ==
LOC: MC 05:33
PROVIDERS: ADMIT Obstetrics & Gynecology; ATTEND Obstetrics & Gynecology
PROC: 0UB70ZZ Excision of Bilateral Fallopian Tubes, Open Approach (ICD-10-PCS; 2016-09-18)
PROC: 10D00Z1 Extraction of Products of Conception, Low, Open Approach (ICD-10-PCS; principal; 2016-09-18 07:33)
PROC: 0WJJ0ZZ Inspection of Pelvic Cavity, Open Approach (ICD-10-PCS; 2016-09-19)
PROC: 0UQ90ZZ Repair Uterus, Open Approach (ICD-10-PCS; 2016-09-19)
PROC: 30233N1 Transfusion of Nonautologous Red Blood Cells into Peripheral Vein, Percutaneous Approach (ICD-10-PCS; 2016-09-19)
DX: O11.4 Pre-existing hypertension with pre-eclampsia, complicating childbirth (principal); N99.820 Postprocedural hemorrhage of a genitourinary system organ or structure following a genitourinary system procedure; D62 Acute posthemorrhagic anemia; O72.1 Other immediate postpartum hemorrhage; O34.211 Maternal care for low transverse scar from previous cesarean delivery; N85.8 Other specified noninflammatory disorders of uterus; O90.81 Anemia of the puerperium; Z30.2 Encounter for sterilization; O09.523 Supervision of elderly multigravida, third trimester; O99.824 Streptococcus B carrier state complicating childbirth; Z3A.37 37 weeks gestation of pregnancy; Z37.0 Single live birth
CPT/HCPCS: 36415; 82565; 82948; 84520; 85014; 85018; 85025; 85027; 86850; 86900; 86901; 86922

== ENCOUNTER 2016-09-23 21:30 | Observation (INO) | payer BC ==
[~2016-09-23] VITALS: Ht 154.9 cm; Wt 105.5 kg
[~2016-09-23 21:30] MED LIST changes: +DOCU240C40 PO; +FERR324T PO; +HYDR-4246 PO; +IBUP-1547 PO
--- OUTSIDE RECORDS SUMMARY | 2016-09-23 21:37 | XMS REPORT | Continuity of Care Document ---
Author Author [facility] Organization [facility] Address Unknown Phone Unavailable Support Name Relationship Address Phone TIFFANY HOLLEY MD Caregiver [address] [address] [address] [place] [address] Unavailable TIFFANY HOLLEY MD Caregiver [address] [place] [address] [address] [place] [address] Unavailable DANIELE WILHELM Next Of Kin [address] [place] [address] C Insurance Providers Guarantor Arturo Wilhelm Address [address] [place] [address] C Email DENIED 07-31-16 Payer [facility] Policy Number [id number] Subscriber's Name Arturo Wilhelm Relationship 18 Self Group Number [id number] Advance Directives Directive Response Recorded Date/Time Ordered Resuscitation Status Full Code 09/18/16 5:39am Resuscitation Documents on File Y Full Code 09/18/16 5:56am DPOA for Healthcare Only No 09/18/16 5:56am Living Will No 09/18/16 5:56am Advanced Directive or Resuscitation Comments Full Code 09/18/16 5:56am Problems No problem information available. Medications Current Home Medications Medication Dose Units Route Directions Days Qty Instructions Start Date Acetaminophen (Tylenol Extra Strength) 500 Mg Tablet 500 Mg Oral As Needed 07/17/11 Calcium Carbonate (Tums) 200 Mg Tab.chew As Needed 07/31/16 Docusate Calcium (Stool Softener) 240 Mg Capsule 240 Mg Oral Daily 30 Capsule 09/21/16 Ferrous Gluconate 324 Mg Tablet 324 Mg Oral Twice Daily With Meals 60 Tablet 09/21/16 Hydrocodone/Acetaminophen (Barto 5-325 Tablet) 5-325 Tablet 1-2 Tab Oral Every 4 Hours as needed for Pain 30 Tablet 09/21/16 Ibuprofen 800 Mg Tablet 800 Mg Oral Q8h @ 0000/0800/1600 40 Tablet 09/21/16 Loratadine/Pseudoephedrine (Claritin-D 12 Hour Tablet) 1 Each Tab.er.12h 1 Tab Oral Daily 40 Tablet 09/15/16 Vits W-Ca,Fe,Fa(<1MG) ( Vitamins) 1 Tab Tablet 1 Tab Oral Daily 07/17/11 Past Home Medications Medication Directions Ordered Status Acetaminophen (Tylenol) 325 Mg Tablet, 325 Mg Oral As Needed 09/06/09 Discontinued Dicyclomine Hcl (Bentyl) 10 Mg Capsule, 10 Mg Oral Four Times Daily 09/06/09 Discontinued Meclizine Hcl 25 Mg Tablet, 25 Mg Oral As Needed 09/06/09 Discontinued Nortriptyline Hcl 10 Mg Capsule, 10 Mg Oral Bedtime 09/06/09 Discontinued Omeprazole (Prilosec) 20 Mg Tablet.dr, 40 Mg Oral Daily 09/06/09 Discontinued Ranitidine Hcl (Zantac) 150 Mg Tablet, 150 Mg Oral Bedtime 09/06/09 Discontinued Tramadol Hcl (Ultram) 50 Mg Tablet, 50 Mg Oral As Needed 09/06/09 Discontinued Social History Social History Problem Response Recorded Date/Time Onset Date Status Reason for Hospitalization 09/21/2016 9:09am Not Applicable Not Applicable Chewing Tobacco Status No 09/15/2016 11:24am Not Applicable Not Applicable Hx Substance Use No 09/18/2016 5:56am Not Applicable Not Applicable Hx Alcohol Use No 09/15/2016 11:24am Not Applicable Not Applicable Has the pt used tobacco in the last 12 months No 09/15/2016 11:24am Not Applicable Not Applicable Query Response Start Date Stop Date Smoking Status Never smoker Hospital Discharge Instructions Instructions: Care Instructions: Reason for Hospitalization: I was in the hospital because (patient own words): to have a baby Discharge Diet: regular Discharge Activity: as instructed Follow Up Appointments: 1 week, sooner prn With Dr Holley on October 02 at 11:30 a.m. Pending Lab / Results: No Pending Lab Wound/Incision Care: as instructed Pain Management/Treatment: RXs provided Expected Signs/Symptoms: as reviewed Notify Physician If: any concerns as instructed During Business Hours:: Please call the physician's office at [phone] After Business Hours:: Please call [phone] and have the sub arc operator page the physician. Condition at time of discharge: Good Plan of Care Discharge Date 09/21/16 10:43am Disposition 01 DISCHARGED HOME, SELF-CARE Instructions/Education Provided [facility] Delivery Prescriptions See Medication Section Care Plan and Goals See Discharge Instructions Section Functional Status Query Response Date Recorded Mobility Status Ambulatory September 21, 2016 9:09am Assistive Devices None September 21, 2016 9:09am Activity Limitations None September 21, 2016 9:09am Feeding Ability Independent September 21, 2016 9:09am Toileting Ability Independent September 21, 2016 9:09am Grooming Ability Independent September 21, 2016 9:09am Dressing Ability Independent September 21, 2016 9:09am Driving Ability Independent September 21, 2016 9:09am Housework Ability Independent September 21, 2016 9:09am Meal Preparation Ability Independent September 21, 2016 9:09am Stair Climbing Ability Independent September 21, 2016 9:09am Cognitive/Perceptual Impairments Impaired vision September 21, 2016 9:09am Visual Assistive Devices Glasses September 18, 2016 3:42pm Preferred Method of Learning Hands on September 18, 2016 3:42pm Allergies, Adverse Reactions, Alerts Allergen Type Severity Reaction Status Last Updated Aspirin Allergy Unknown Active 09/18/16 Immunizations Query Response on File Recorded Date/Time Hx Influenza Vaccination Y fall 201509/15/16 11:24am Hx Pneumococcal Vaccination No 09/15/16 11:24am Hx Tetanus, Diptheria, Pertussis Y vaccinated 201008/04/11 7:52pm Hx Influenza Vaccination Y fall 201509/15/16 11:24am Hx Tetanus, Diptheria, Pertussis Y vaccinated 201008/04/11 7:52pm Influenza Vaccine Hx 02/12/16 09/18/16 5:56am Tdap Vaccine Hx 08/30/16 09/18/16 5:56am Vital Signs Acute Vital Signs Vital Response Date/Time Temperature (Fahrenheit) 98.0 deg F (96.8 - 99.1) 09/21/2016 9:55am Temperature (Calculated Celsius) 36.12289 degrees C (36.0 - 37.3) 09/21/2016 9:55am Temperature Source Oral 09/19/2016 8:40am Pulse Rate (adult) 106 bpm (60 - 100) 09/21/2016 9:55am Respiratory Rate 20 breaths/min (10 - 20) 09/21/2016 9:55am O2 Sat by Pulse Oximetry 97 % (90 - 100) 09/21/2016 9:55am Oxygen Delivery Method Room Air 09/21/2016 9:55am Oxygen Flow Rate 1.00 L/min 09/19/2016 9:03am Blood Pressure 128/82 mm Hg 09/21/2016 9:55am Blood Pressure Source Automatic Cuff 09/21/2016 9:55am Height (Feet) 5 feet 09/18/2016 5:56am Height (Inches) 1.00 inches 09/18/2016 5:56am Weight (Kilograms) 106.100 kg 09/18/2016 5:56am Body Mass Index (BMI) 43.3 07/31/2016 11:22am Results Laboratory Results Test Name Result Units Flags Reference Collection Date/Time Result Date/ Time Comments Thyroid Stimulating Hormone (TSH) 1.65 MIU/L 0.47-4.68 07/31/2016 10: 51am 07/31/2016 11:37am Stool Campylobacter PCR NEGATIVE NEGATIVE 07/31/2016 11:17am 2016 3:10pm Stool C. difficile Toxin (PCR) NEGATIVE NEGATIVE 07/31/2016 11:17am 07/31/2016 3:10pm Stool Plesiomonas shigelloides PCR NEGATIVE NEGATIVE 07/31/2016 11: 17am 07/31/2016 3:10pm Stool Salmonella PCR NEGATIVE NEGATIVE 07/31/2016 11:17am 07/31/2016 3:10pm Stool Vibrio (PCR) NEGATIVE NEGATIVE 07/31/2016 11:17am 07/31/2016 3: 10pm Stool Vibrio cholera (PCR) NEGATIVE NEGATIVE 07/31/2016 11:17am 07/31 3:10pm Stool Yersinia enterocolitica (PCR) NEGATIVE NEGATIVE 07/31/2016 11: 17am 07/31/2016 3:10pm Stool Enteroaggregative E. coli PCR NEGATIVE NEGATIVE 07/31/2016 11: 17am 07/31/2016 3:10pm Stool Enteropathogenic E. coli (PCR NEGATIVE NEGATIVE 07/31/2016 11: 17am 07/31/2016 3:10pm Stool Enterotoxigenic Ecoli PCR NEGATIVE NEGATIVE 07/31/2016 11:17am 07/31/2016 3:10pm Stool E. coli Shiga Toxins NEGATIVE NEGATIVE 07/31/2016 11:17am 07/31 3:10pm Stool E coli O157 PCR N/A NA/NEG 07/31/2016 11:17am 07/31/2016 3: 10pm Stool Shigella/EIEC (PCR) NEGATIVE NEGATIVE 07/31/2016 11:17am 2016 3:10pm Stool Cryptosporidium PCR NEGATIVE NEGATIVE 07/31/2016 11:17am 2016 3:10pm Stool Cyclospora species Detection NEGATIVE NEGATIVE 07/31/2016 11: 17am 07/31/2016 3:10pm Stool Entamoeba (PCR) NEGATIVE NEGATIVE 07/31/2016 11:17am 2016 3:10pm Stool Giardia Lamblia PCR NEGATIVE NEGATIVE 07/31/2016 11:17am 2016 3:10pm Stool Adenovirus (PCR) NEGATIVE NEGATIVE 07/31/2016 11:17am 2016 3:10pm Stool Astrovirus (PCR) NEGATIVE NEGATIVE 07/31/2016 11:17am 2016 3:10pm Stool Norovirus GI/GII PCR NEGATIVE NEGATIVE 07/31/2016 11:17am 07/31 3:10pm Stool Rotavirus A PCR NEGATIVE NEGATIVE 07/31/2016 11:17am 2016 3:10pm Stool Sapovirus (PCR) NEGATIVE NEGATIVE 07/31/2016 11:17am 2016 3:10pm Urine Collection Type CLEANCATCH-MIDSTREAM 07/31/2016 11:18am 07/31 11:35am Urine Color YELLOW YELLOW 07/31/2016 11:18am 07/31/2016 11:35am Urine Turbidity CLEAR CLEAR 07/31/2016 11:18am 07/31/2016 11:35am Urine Specific [place] 1.025 1.015-1.025 07/31/2016 11:18am 2016 11:35am Urine pH 6.5 5.0-8.0 07/31/2016 11:18am 07/31/2016 11:35am Urine Leukocyte Esterase NEGATIVE NEGATIVE 07/31/2016 11:18am 2016 11:35am Urine Nitrite NEGATIVE NEGATIVE 07/31/2016 11:18am 07/31/2016 11: 35am Urine Protein NEGATIVE NEGATIVE 07/31/2016 11:18am 07/31/2016 11: 35am Urine Glucose (UA) NEGATIVE NEGATIVE 07/31/2016 11:18am 07/31/2016 11 :35am Urine Ketones 3+ A NEGATIVE 07/31/2016 11:18am 07/31/2016 11:35am Urine Urobilinogen 1.0 EU/DL NORMAL 07/31/2016 11:18am 07/31/2016 11: 35am Urine Bilirubin NEGATIVE NEGATIVE 07/31/2016 11:18am 07/31/2016 11: 35am Urine Blood NEGATIVE NEGATIVE 07/31/2016 11:18am 07/31/2016 11:35am Urinalysis Comment MICROSCOPIC NOT IND. 07/31/2016 11:18am 2016 11:35am White Blood Count 17.4 T/MM3 H 4.5-11.0 09/20/2016 9:09/20/2016 9: 45am Red Blood Count 2.47 M/MM3 L 4.00-5.20 09/20/2016 9:09/20/2016 9: 45am Hemoglobin 7.4 GM/DL L 12-16 09/20/2016 9:09/20/2016 9:45am Hematocrit 23.0 % L 36-46 09/20/2016 9:09/20/2016 9:45am Mean Corpuscular Volume 93.1 UM3 80-100 09/20/2016 9:09/20/2016 9: 45am Mean Corpuscular Hemoglobin 30.0 UUG 26-34 09/20/2016 9:2016 9:45am Mean Corpuscular Hemoglobin Concent 32.2 GM/DL 31-37 09/20/2016 9:09/20/2016 9:45am RDW Standard Deviation 45.8 FL 36.9-50.2 09/20/2016 9:09/20/2016 9 :45am Platelet Count 259 T/MM3 130-400 09/20/2016 9:09/20/2016 9:45am Mean Platelet Volume 9.9 UM3 9.4-12.4 09/20/2016 9:09/20/2016 9: 45am Neutrophils (%) (Auto) 82.5 % H 33-66 09/19/2016 4:27am 09/19/2016 4: 32am Lymphocytes (%) (Auto) 12.1 % L 23-45 09/19/2016 4:09/19/2016 4: 32am Monocytes (%) (Auto) 4.3 % 0-9.0 09/19/2016 4:09/19/2016 4:32am Eosinophils (%) (Auto) 0.4 % 0-4 09/19/2016 4:09/19/2016 4:32am Basophils (%) (Auto) 0.1 % 0-2 09/19/2016 4:09/19/2016 4:32am Immature Granulocyte % (Auto) 0.6 % H 0.0-0.5 09/19/2016 4:2016 4:32am Absolute Neutrophils (auto) 12.0 T/MM3 H 1.8-7.7 09/19/2016 4:09/19 4:32am Absolute Lymphocytes (auto) 1.8 T/MM3 1-4.8 09/19/2016 4:2016 4:32am Absolute Monocytes (auto) 0.6 T/MM3 0-0.8 09/19/2016 4:09/19/2016 4:32am Absolute Eosinophils (auto) 0.1 T/MM3 0-0.5 09/19/2016 4:2016 4:32am Absolute Basophils (auto) 0.0 T/MM3 0-0.2 09/19/2016 4:09/19/2016 4:32am Absolute Immature Granulocyte (auto 0.08 T/MM3 H 0.00-0.03 09/19/2016 4: 09/19/2016 4:32am Neutrophils % (Manual) 84.0 % H 33-66 09/20/2016 9:11am 09/20/2016 10: 17am Band Neutrophils % 1.0 % 0-6 09/18/2016 12:14pm 09/18/2016 12:33pm Lymphocytes % (Manual) 7.0 % L 23-45 09/20/2016 9:11am 09/20/2016 10: 17am Monocytes % (Manual) 4.0 % 0-9.0 09/20/2016 9:11a09/20/2016 10:17am Eosinophils % (Manual) 2.0 % 0-4 09/20/2016 9:09/20/2016 10:17am Basophils % (Manual) 1.0 % 0-2 09/20/2016 9:09/20/2016 10:17am Metamyelocytes % 2.0 % H 0-0 09/20/2016 9:09/20/2016 10:17am Band Neutrophils # 0.2 T/MM3 09/18/2016 12:14pm 09/18/2016 12:33pm Absolute Neutrophils (Manual) 14.6 T/MM3 H 1.8-7.7 09/20/2016 9:02/2017 10:17am Lymphocytes # (Manual) 1.2 T/MM3 1-4.8 09/20/2016 9:09/20/2016 10: 17am Monocytes # (Manual) 0.7 T/MM3 0-0.8 09/20/2016 9:09/20/2016 10: 17am Eosinophils # (Manual) 0.3 T/MM3 0-0.5 09/20/2016 9:09/20/2016 10: 17am Basophils # (Manual) 0.2 T/MM3 0-0.2 09/20/2016 9:09/20/2016 10: 17am Metamyelocytes # 0.3 T/MM3 09/20/2016 9:09/20/2016 10:17am Red Cell Morphology Comment NORMAL 09/20/2016 9:09/20/2016 10: 17am Blood Urea Nitrogen 7.0 MG/DL 7-17 09/19/2016 2:21am 09/19/2016 2:35am Creatinine 0.6 MG/DL L 0.7-1.2 09/19/2016 2:21am 09/19/2016 2:35am Glomerular Filtration Rate Calc 114 09/19/2016 2:21am 09/19/2016 2: 35am Reason Tests Not Done HEMOLYZED SPECIMEN 09/18/2016 6:39am 2016 6:40am Tests Not Done TS 09/18/2016 6:39am 09/18/2016 6:40am [place] [place] 09/18/2016 6:39am 2016 6:40am Glucometer 35 mg/dL *L 65-110 09/18/2016 9:23am 09/18/2016 9:37am Name: ARTURO WILHELM Unit #: [id number] : 1980 Sex: F Admit Date: 09/18/16 Loc / Svc: Discharge Date: DIAGNOSTIC IMAGING REPORT Report #: [id number] [facility] TAINA Helm EXAM: CT abdomen pelvis without contrast HISTORY: ITS.REASON: post op bleeding abdominal tenderness and bloating status post and tubal ligation with bleeding from incision site. Hemoglobin has dropped. COMPARISON: No prior studies are available for comparison TECHNIQUE: Multiple contiguous axial images were obtained of the abdomen and pelvis without contrast. Coronal and sagittal reformations were utilized. Automated Exposure Control and Iterative Reconstruction dose reducing techniques were utilized. PROCEDURE: Axial images were obtained throughout the entire abdomen and pelvis without contrast administration. FINDINGS: CT ABDOMEN LUNG BASES: There is bilateral dependent atelectasis demonstrated. LIVER: Unremarkable. SPLEEN: Unremarkable. GALLBLADDER: The gallbladder surgically absent. PANCREAS: Unremarkable. ADRENAL GLANDS: Unremarkable. KIDNEYS: Unremarkable. AORTA: Unremarkable. LYMPH NODES: Unremarkable. STOMACH BOWEL LOOPS: Unremarkable. The appendix is not visualized. PERITONEAL CAVITY: There is moderate to large amount of mixed hypo and hyperdense fluid throughout the abdomen and pelvis. The majority of the hyperdense fluid likely represents hemorrhage and is predominately located in the upper pelvis extending to the paracolic gutters. Small amount of free air is demonstrated within the peritoneal cavity and subcutaneous fat ventrally. CT PELVIS URINARY BLADDER: Gusman catheter is in place within decompressed bladder. UTERUS/OVARIES: The uterus is heterogeneous and enlarged compatible with recent section. OSSEOUS STRUCTURES: Bilateral spondylolysis at the L4 level with grade 1 anterolisthesis of L4 on L5. IMPRESSION: 1. Large mixed free fluid within the abdominal pelvic peritoneal cavity most compatible hemoperitoneum with the greatest amount of fluid concentrated in the upper pelvis and right paracolic gutter. 2. The uterus is enlarged and heterogeneous compatible with recent section. 3. Small pockets of gas within the peritoneal cavity and ventral abdominal subcutaneous wall fat. . Procedures Procedure Status Date Provider(s) Urinalysis auto w/o scope Completed 07/31/16 Assay thyroid stim hormone Completed 07/31/16 Complete cbc w/auto diff wbc Completed 07/31/16 Iadna-dna/rna probe tq 12-25 Completed 07/31/16 067104"INJECTION, DIMENHYDRINATE, UP TO 50 MG" Completed 07/31/16 637886"RINGERS LACTATE INFUSION, UP TO 1000 CC" Completed 07/31/16 D5LR 1000 ML Completed 07/31/16 section Completed 09/18/16 TIFFANY HOLLEY MD Abdominal hysterectomy Completed 09/19/16 TIFFANY HOLLEY MD Encounters Encounter Location Arrival/Admit Date Discharge/Depart Date Attending Provider Discharged Inpatient [facility] 09/18/16 5:33am 09/21/16 10:43am TIFFANY HOLLEY MD Registered Clinic [facility] 07/31/16 10:12am TIFFANY HOLLEY MD
[2016-09-23 21:45] VITALS: BP 150/89; PULSE 106; RESP 18; TEMP 98; O2SAT 98
[2016-09-23 22:00] VITALS: BP 144/91; PULSE 109
[2016-09-23 22:06] VITALS: Ht 154.9 cm; Wt 105.5 kg
[2016-09-23 22:08] LABS: HCT - HEMATOCRIT 23.9 % (36-46); HGB - HEMOGLOBIN 7.7 GM/DL (12-16); MEAN CORPUSCULAR HGB 30.3 UUG (26-34); MEAN CORPUSCULAR HGB CONC(MCHC 32.2 GM/DL (31-37); MEAN CORPUSCULAR VOLUME 94.1 UM3 (80-100); MEAN PLATELET VOLUME 9.3 UM3 (9.4-12.4); RED BLOOD COUNT 2.54 M/MM3 (4.00-5.20); WBC - WHITE BLOOD COUNT 13.6 T/MM3 (4.5-11.0)
[2016-09-23 22:15] VITALS: BP 158/80; PULSE 106
[2016-09-23 22:16] LABS: ALBUMIN 3.2 G/DL (3.5-5.0); ALBUMIN/GLOBULIN RATIO 1.4 RATIO (1.1-2.2); ALKALINE PHOSPHATASE 93 U/L (38-126); ALT (SGPT) 27 U/L (9-52); ANION GAP 11 MEQ/L (5-15); AST (SGOT) 19 U/L (14-36); BUN/CREATININE RATIO 20 RATIO (6-26); CHLORIDE 106 MEQ/L (98-107); CO2 - CARBON DIOXIDE 26 MEQ/L (22-30); CREATININE 0.5 MG/DL (0.7-1.2); GLOMERULAR FILTRATION RATE 140; GLUCOSE 116 MG/DL (65-110); POTASSIUM 3.9 MEQ/L (3.6-5); SODIUM 143 MEQ/L (134-144); TOTAL PROTEIN 5.5 G/DL (6.3-8.2)
[2016-09-23 22:18] LABS: BAND NEUTROPHILS # 1.4 T/MM3; EOSINOPHILS # (MANUAL) 0.5 T/MM3 (0-0.5); LYMPHOCYTES # (MANUAL) 3.3 T/MM3 (1-4.8); METAMYELOCYTES # 0.1 T/MM3; MONOCYTES # (MANUAL) 0.5 T/MM3 (0-0.8); NUCLEATED RED BLOOD CELLS 1; TOTAL CELLS COUNTED 100 %
[2016-09-23 22:19] LABS: MYELOCYTES # 0.1 T/MM3; NEUTROPHILS #(MANUAL)-ABSOLUTE 7.6 T/MM3 (1.8-7.7)
[2016-09-23 22:30] VITALS: BP 154/86; PULSE 101
[2016-09-24] MEDS: HYDROCODONE/APAP 5 mg/325 mg TABLET PO PRN ×3 (00:24→11:14)
[2016-09-24 00:25] VITALS: BP 140/90; PULSE 96
[2016-09-24 02:27] VITALS: BP 149/85; PULSE 93; RESP 16; TEMP 98.1; O2SAT 99
[2016-09-24 04:30] VITALS: BP 146/91; PULSE 90; RESP 16; TEMP 98.2; O2SAT 99
[2016-09-24 06:30] VITALS: BP 176/85; PULSE 86; RESP 18; TEMP 98.3; O2SAT 99
[2016-09-24 07:05] LABS: HCT - HEMATOCRIT 25.2 % (36-46); HGB - HEMOGLOBIN 8.1 GM/DL (12-16); MEAN CORPUSCULAR HGB 30.5 UUG (26-34); MEAN CORPUSCULAR HGB CONC(MCHC 32.1 GM/DL (31-37); MEAN CORPUSCULAR VOLUME 94.7 UM3 (80-100); MEAN PLATELET VOLUME 9.1 UM3 (9.4-12.4); RED BLOOD COUNT 2.66 M/MM3 (4.00-5.20); WBC - WHITE BLOOD COUNT 13.4 T/MM3 (4.5-11.0)
[2016-09-24 07:17] LABS: ALBUMIN 3.2 G/DL (3.5-5.0); ALBUMIN/GLOBULIN RATIO 1.2 RATIO (1.1-2.2); ALKALINE PHOSPHATASE 101 U/L (38-126); ALT (SGPT) 30 U/L (9-52); ANION GAP 10 MEQ/L (5-15); AST (SGOT) 25 U/L (14-36); BUN/CREATININE RATIO 18 RATIO (6-26); CALCIUM 8.8 MG/DL (8.4-10.2); CHLORIDE 104 MEQ/L (98-107); CO2 - CARBON DIOXIDE 30 MEQ/L (22-30); CREATININE 0.5 MG/DL (0.7-1.2); GLOMERULAR FILTRATION RATE 140; GLUCOSE 78 MG/DL (65-110); POTASSIUM 3.9 MEQ/L (3.6-5); SODIUM 144 MEQ/L (134-144); TOTAL PROTEIN 5.8 G/DL (6.3-8.2)
[2016-09-24 07:25] LABS: TOTAL CELLS COUNTED 100 %
[2016-09-24 07:30] LABS: BAND NEUTROPHILS # 0.4 T/MM3; EOSINOPHILS # (MANUAL) 0.7 T/MM3 (0-0.5); LYMPHOCYTES # (MANUAL) 4.4 T/MM3 (1-4.8); METAMYELOCYTES # 0.4 T/MM3; MYELOCYTES # 0.1 T/MM3; NEUTROPHILS #(MANUAL)-ABSOLUTE 7.4 T/MM3 (1.8-7.7); NUCLEATED RED BLOOD CELLS 1
--- NOTE | 2016-09-24 07:50 | PNPDOC ---
Progress Note Date 09/24/16 Pt placed as MOP last night after calling and reporting she just didn't feel well. Headache, fatigue. Monitored overnight, she reports no change in headache , no visual disturbances. The LARES is not severe. SBP 179 DBP 91 CMP normal CBC shows increase in H&H since dismissal earlier this week. Hgb > 8 this morning. Will start Labetalol p.o. and continue to monitor. Continue 24 urine for total protein. Pt reminds me that she had elevated BP after her last delivery and was on Labetalol for a week. She voices agreement with this plan. Q&A. Precautions reviewed. TIFFANY LUNA MD September 24, 2016 07:49
[2016-09-24] MEDS ORDERED: LABE100T PO (07:51)
[2016-09-24 08:36] VITALS: BP 130/78; PULSE 88; RESP 18; O2SAT 99
[2016-09-24] MEDS ORDERED: LABETALOL 100 MG TABLET PO SCH (09:00)
[2016-09-24 10:08] VITALS: BP 146/86
[2016-09-25 12:58] LABS: CREATININE 0.5 MG/DL (0.7-1.2); GLOMERULAR FILTRATION RATE 140; PATIENT WEIGHT,URINE 106 KG
== END 2016-09-24 12:04 | disposition home or self-care (01) ==
LOC: MC 21:30
PROVIDERS: ADMIT Obstetrics & Gynecology; ATTEND Obstetrics & Gynecology
DX: O90.89 Other complications of the puerperium, not elsewhere classified (principal); R03.0 Elevated blood-pressure reading, without diagnosis of hypertension; R51 Headache; R53.83 Other fatigue
CPT/HCPCS: 36415; 80053; 82575; 84156; 85025; 99218